=== PATIENT | female | born 1960 | race Caucasian/White ===

== ENCOUNTER 2023-05-22 09:46 | Day surgery (SDC) | payer BC ==
[~2023-05-22 09:46] MED LIST: Lactated Ringers 1,000 ML IV SCH
[2023-05-22] MEDS ORDERED: propofoL 50 ML ONE (11:59)
[2023-05-22] MEDS ORDERED: Propofol 200 MG/20 ML SDV ONE (12:55)
[2023-05-22] MEDS ORDERED: Lactated Ringers 1,000 ML IV SCH (13:15)
== END 2023-05-22 13:50 | disposition home or self-care (01) ==
LOC: MW.SDS 09:46
PROVIDERS: ATTEND Surgery
DX: Z12.11 Encounter for screening for malignant neoplasm of colon (principal); D12.0 Benign neoplasm of cecum; K57.30 Diverticulosis of large intestine without perforation or abscess without bleeding; I10 Essential (primary) hypertension; F32.A Depression, unspecified; E03.9 Hypothyroidism, unspecified; M19.90 Unspecified osteoarthritis, unspecified site; E66.9 Obesity, unspecified; Z96.649 Presence of unspecified artificial hip joint; Z90.721 Acquired absence of ovaries, unilateral; Z98.890 Other specified postprocedural states; Z80.0 Family history of malignant neoplasm of digestive organs; Z79.899 Other long term (current) drug therapy; Z87.891 Personal history of nicotine dependence
CPT/HCPCS: 45380; J2704; J7120; 00811